=== PATIENT | male | born 1945 | race Caucasian/White ===

== ENCOUNTER 2016-11-19 11:11 | Day surgery (SDC) | payer MEDICARE ==
[~2016-11-19 11:11] MED LIST: CARV25TA PO; HYDR12.56 PO; LISI40TA PO; LOVA20TA PO; MULT400T PO; PROPOFOL 200 MG/20 ML AMP IV ONE; WARF-22 PO; WARF-23 PO
[2016-11-19] MEDS ORDERED: SOTA80TA PO (12:26)
--- NOTE | 2016-11-19 14:27 | PD.CARD ---
Cardiology Procedure Note Procedure Name: DC cardioversion Procedure Date: Nov 19, 2016 Procedure Note: Procedure: DC cardioversion Indication: Atrial fibrillation After patient was sedated by anesthesia, 200 J biphasic shock was delivered converting the patient to SR w V pacing. Dx: Successful cardioversion of atrial fibrillation Plan: Continue anticoagulation. F/u w me in the near future. Ronda Church MD Nov 19, 2016 14:27
--- NOTE | 2016-11-20 14:55 | EKG ---
Date Performed: 11/19/2016 Time Performed: 14:37:32 PTAGE: 70 years EKG: Normal Sinus rhythm Demand pacing IVCD Compared to previous tracing patient appears to be in sinus rhythm Abnormal ECG PREVIOUS TRACING : 11/19/2016 12.17 DOCTOR: Laney Aguiar Interpretating Date/Time 11/20/2016 14:54:10
--- NOTE | 2016-11-21 17:31 | EKG ---
Date Performed: 11/19/2016 Time Performed: 12:17:52 PTAGE: 70 years EKG: Atrial fibrillation with frequent ventricular ectopic beat, possibly pacer beat Incomplete LBBB Possible left ventricular hypertrophy Extensive ST-T changes are probably due to ventricular hyp ertrophy Low QRS voltages in limb leads Clinical correlation is recommended. Compared to prior tracin g, ectopic beats are more frequent. Abnormal ECG PREVIOUS TRACING : 05/28/2016 14.02 DOCTOR: Xiang Echeverria Interpretating Date/Time 11/21/2016 17:30:23
== END 2016-11-19 15:15 | disposition home or self-care (01) ==
LOC: HDIC 11:11 → HROP 11:11
PROVIDERS: ATTEND Internal Medicine Interventional Cardiology
DX: I48.0 Paroxysmal atrial fibrillation (principal); Z79.01 Long term (current) use of anticoagulants
CPT/HCPCS: 92960; 93005

== ENCOUNTER 2017-10-22 12:03 | Day surgery (SDC) | payer MEDICARE ==
[~2017-10-22 12:03] MED LIST changes: -MULT400T PO; -PROPOFOL 200 MG/20 ML AMP IV ONE; +SOTA80TA PO; -WARF-23 PO
[2017-10-22] MEDS ORDERED: SODIUM CHLORID 0.9% 500 ML IV PRN (13:00)
[2017-10-22] MEDS ORDERED: METOPROLOL TARTRATE 25 MG TAB PO PRN (13:00)
[2017-10-22] MEDS ORDERED: POVIDONE IODINE 5% (ANTISEPSIS KIT) 4 APPLICATIONS EACH NARE PRN (13:00)
[2017-10-22] MEDS ORDERED: CHLORHEXIDINE GLUCONATE 2 % 1 PACK (2 CLOTHS) TOPICAL PRN (13:00)
[2017-10-22] MEDS ORDERED: LACTATED RINGER'S 1000 ML IV PRN (13:00)
[2017-10-22] MEDS ORDERED: PROPOFOL 200 MG/20 ML AMP ONE (14:13)
--- NOTE | 2017-10-22 15:11 | MR ---
cc: Ronda Church MD DATE: 10/22/2017 INDICATION: Atrial fibrillation, cardiomyopathy, history of a Medtronic implantable defibrillator placement. PROCEDURES PERFORMED: 1. Direct current cardioversion. 2. Interrogation of Medtronic dual chamber defibrillator. COMPLICATIONS: None. PROCEDURE: After the patient was sedated by anesthesia, 200-joule biphasic shock was delivered and converted the patient to sinus rhythm with ventricular pacing. The device was then interrogated, and the interrogation showed normal defibrillator function. The patient was discharged home in stable condition. DIAGNOSES: 1. Successful cardioversion of atrial fibrillation. 2. Normal function of Medtronic dual chamber defibrillator. DISPOSITION: The patient will continue his current program including anticoagulation. I will see him back for followup in our office after discharge. Ronda Church MD OQ/LK , 02:24 PM , 03:10 PM MTDShane
--- NOTE | 2017-10-23 14:09 | EKG ---
Date Performed: 10/22/2017 Time Performed: 15:18:50 PTAGE: 71 years EKG: Dual chamber pacing Abnormal ECG Compared to PREVIOUS TRACING , the patient is no longer in atrial fibrillation. PREVIOUS TRACIN 12.37 DOCTOR: Julien Spaulding Interpretating Date/Time 10/23/2017 14:07:57
--- NOTE | 2017-10-23 14:09 | EKG ---
Date Performed: 10/22/2017 Time Performed: 12:37:58 PTAGE: 71 years EKG: Atrial fibrillation with a controlled ventricular rate and ventricular demand pacing Low li mb lead voltage Nonspecific ST-T wave changes Abnormal ECG Since PREVIOUS TRACING , no significant change noted PREVIOUS TRACIN11/19/2016 14.37 DOCTOR: Julien Spaulding Interpretating Date/Time 10/23/2017 14:07:11
== END 2017-10-22 15:58 | disposition home or self-care (01) ==
LOC: HSDC 12:03 → HDIC 12:03 → HSDC 15:58
PROVIDERS: ATTEND Internal Medicine Interventional Cardiology
DX: I48.91 Unspecified atrial fibrillation (principal); I42.9 Cardiomyopathy, unspecified; Z95.810 Presence of automatic (implantable) cardiac defibrillator
CPT/HCPCS: 92960; 93005

== ENCOUNTER 2018-01-12 10:29 | Day surgery (SDC) | payer MEDICARE ==
[~2018-01-12] VITALS: Ht 175.3 cm; Wt 92.7 kg
[2018-01-12 11:29] VITALS: BP 122/72; PULSE 64; RESP 18; TEMP 97.9; O2SAT 94
[2018-01-12] MEDS ORDERED: CHLORHEXIDINE GLUCONATE 2 % 1 PACK (2 CLOTHS) TOPICAL PRN (11:30)
[2018-01-12] MEDS ORDERED: LACTATED RINGER'S 1000 ML IV PRN (11:30)
[2018-01-12] MEDS ORDERED: SODIUM CHLORID 0.9% 500 ML IV PRN (11:30)
[2018-01-12] MEDS ORDERED: POVIDONE IODINE 5% (ANTISEPSIS KIT) 4 APPLICATIONS EACH NARE PRN (11:30)
[2018-01-12] MEDS ORDERED: METOPROLOL TARTRATE 25 MG TAB PO PRN (11:30)
[2018-01-12] MEDS ORDERED: ceFAZolin 2 GM PREMIX 50 ML IV SCH (11:45)
[2018-01-12] MEDS ORDERED: CHLORHEXIDINE GLUCONATE 2 % 1 PACK (2 CLOTHS) TOPICAL SCH (11:45)
[2018-01-12] MEDS ORDERED: NS 1000 ML IV SCH (11:45)
[2018-01-12] MEDS ORDERED: VANCOMYCIN 1000 MG/NS 250 ML IV SCH ×2 (11:45)
[2018-01-12] MEDS ORDERED: POVIDONE IODINE 5% (ANTISEPSIS KIT) 4 APPLICATIONS EACH NARE SCH (11:45)
[2018-01-12] MEDS ORDERED: MUPIROCIN 2% OINT 1 APPLIC/GM SYR NASAL SCH (11:45)
[2018-01-12] MEDS ORDERED: LOVA40TA PO (11:47)
[2018-01-12] MEDS ORDERED: SACU1TAB4 PO (11:47)
[2018-01-12] MEDS ORDERED: SPIR25TA PO (11:47)
[2018-01-12] MEDS ORDERED: AMIO200T PO (11:47)
[2018-01-12] MEDS ORDERED: VITACAP7 PO (11:47)
[2018-01-12] MEDS ORDERED: HYDR25TA5 PO (11:47)
[2018-01-12] MEDS ORDERED: GLUC1CAP16 PO (11:47)
[2018-01-12] MEDS ORDERED: WARF-23 PO (11:47)
[2018-01-12] MEDS ORDERED: MULT1TAB46 PO (11:47)
[2018-01-12] MEDS ORDERED: VITA250T3 PO (11:47)
[2018-01-12 11:55] LABS: AUTOMATED NEUTROPHIL # 6.4 TH/MM3 (1.8-7.7); BASOPHIL # 0.1 TH/MM3 (0-0.2); BASOPHIL % 0.6 % (0.0-2.0); EOSINOPHIL # 0.1 TH/MM3 (0-0.4); EOSINOPHIL % 1.3 % (0.0-4.0); HEMATOCRIT 36.9 % (39.0-51.0); HEMOGLOBIN 12.7 GM/DL (13.0-17.0); LYMPH % 14.6 % (9.0-44.0); LYMPHOCYTE # 1.2 TH/MM3 (1.0-4.8); MEAN CELL VOLUME 89.8 FL (80.0-100.0); MEAN CORPUSCULAR HEMOGLOBIN 30.9 PG (27.0-34.0); MEAN CORPUSCULAR HGB CONC 34.4 % (32.0-36.0); MEAN PLATELET VOLUME 7.3 FL (7.0-11.0); MONO % 7.6 % (0.0-8.0); MONOCYTE # 0.6 TH/MM3 (0-0.9); NEUT % 75.9 % (16.0-70.0); PLATELET COUNT 245 TH/MM3 (150-450); RED BLOOD COUNT 4.11 MIL/MM3 (4.50-5.90); RED CELL DISTRIBUTION WIDTH 13.3 % (11.6-17.2); WHITE BLOOD COUNT 8.4 TH/MM3 (4.0-11.0)
[2018-01-12] MEDS ORDERED: ePHEDrine/NS 25 MG/5 ML SYRINGE IV ONE (12:00)
[2018-01-12] MEDS ORDERED: PROPOFOL 200 MG/20 ML AMP IV ONE (12:00)
[2018-01-12] MEDS ORDERED: LIDOCAINE HCL 1% PF 5 ML SYRINGE OTHER ONE (12:00)
[2018-01-12] MEDS ORDERED: PHENYLEPH/NS 1000 MCG/10 ML SYR IV ONE (12:00)
[2018-01-12 12:07] LABS: INTERNATIONAL NORMALIZED RATIO 1.3 RATIO
[2018-01-12 12:09] LABS: CALCIUM 8.9 MG/DL (8.5-10.1); CREATININE 1.69 MG/DL (0.60-1.30)
[2018-01-12] MEDS ORDERED: LIDOCAINE HCL 2% 20 ML VIAL ONE (14:33)
[2018-01-12] MEDS ORDERED: GENTAMICIN SULFATE 80 MG/2 ML VIAL ONE (14:33)
--- NOTE | 2018-01-12 16:20 | CATHPROC ---
[facility] HIS Report Study Information Study Number Admission Scheduled Start Study Start [id number] Jan 12 2018 10:29AM 01/12/2018 Jan 12 2018 2:02PM [facility] Cardiac Pacer/ICD Admit Source Facility Department Other [facility] - Health Consultant Physician and Clinical Staff Initial Ronda Fuentes Fleet Technician Cynthia Chaves,STAFF DEVELOPER Other Anesthesia, SENIOR SYSTEMS DEVELOPER Recorder Zuleyka Swartz BSN Recorder Claudia Anguiano,JULIUS Scrub Carter Mcdonough RT(R) Equipment Time Textile Chemist Description Size Mfg Part Number Used/Scraped 14:38 [employer] DRAPE, [place] X-RAY 12X17 12X17 D-100 *[id number] Used INTRODUCER SET, 14:38 [employer] FR 5 [id number] *[id number] Used MICROPUNCTURE STIFF INTRODUCER SET, 14:38 [employer] FR 5 [id number] *[id number] Used MICROPUNCTURE STIFF [id number] 14:38 [email or web address] BLANKET,WARM AIR CCL * Used *[id number] 14:38 [email or web address] DRAPE, IOBAN 2 6661EZ 26cm x 20cm Used *[id number] TP-1103 14:38 [email or web address] SUTURE, STRIP PLUS 1/2" * Used *[id number] 14:38 MEDLINE PACER ADHESIVE, MASTISOL 2/3CC 2/3CC 0523-48 Used 14:38 MEDLINE PACER SORENSEN, LIMB * 2530 *[id number] Used [id number] 14:38 MEDLINE PACER PACK, PACER CUSTOM * Used *[id number] 14:38 MEDLINE PACER PEN, SKIN DUAL W/ RULER * Used *[id number] PROBE COVER, STERILE [id number] 14:38 [employer] MEDICAL * Used ULTRASOUND W/ GEL *[id number] 14:44 Needle Sponge Count 1 111 Used 14:44 Needle Sponge Count 2 2 Used 14:44 Needle Sponge Count 25 1 Used 15:30 Needle Sponge Count 30 1 Used 15:24 Needle Sponge Count 35 Used [id number] SUTURE, 0 ETHIBOND [CT1] (CX21D), 8pk SUTURE, 2-0 VICRYL [CT1] ([id number]) SUTURE, 2-0 VICRYL [CT1] (HLG644H) SUTURE, 4-0 VICRYL [PS2] (YCH745H) ENVELOPE, TYRX ANTIBACTERIAL 15:12 [employer]. [id number] Used [facility] PAD, ELECTROSURGICAL 14:38 * [id number] *[id number] Used SURGICAL GROUNDING ORANGE DEFIBRILLATOR, EVERA MRI XT 15:04 VITATRON MEDTRONIC DDE-DDDR [id number] Used [id number] 14:39 VITATRON MEDTRONIC PLASMABLADE, PEAD 3.0S * Used *[id number] 14:38 [employer]. / * Used *[id number] Equipment Model, Serial, Lot Number and Expiration Data Description Model Number Serial Number Lot Number Expiration Date DEFIBRILLATOR, EVERA MRI XT [id number] 05-24-2019 ENVELOPE, TYRX ANTIBACTERIAL [id number] 03-27-2018 LARGE Labs Hgb (g/dl) Hct (%) RBC (MIL/MM3) WBC (l/cumm) Platelets (thousands) 11.60-17.00 35.00-51.00 4.00-5.90 4.00-11.00 150.00-450.00 12.7 36.9 4.1 8.4 245 Glucose (mg/dl) BUN (mg/dl) Creatinine (mg/dl) BUN:Creatinine (1:x) 74.00-106.00 7.00-18.00 0.50-1.30 10.00-20.00 91 37 1.6 23.1 Na (meq/l) K (meq/l) 136.00-145.00 3.50-5.10 141 4.5 INR (PTT:PT) 0.90-1.10 1.3 CPK-MB (ng/ML) 0.50-3.60 Not Drawn Medication Medication Total Dose (Bolus/Oral) Medication Total Dosage/Unit 2% XYLOCAINE 20 mL Medications (Bolus/Oral) Medication Time Given Dosage/Unit Administered By Reason 2% XYLOCAINE 01/12/2018 3:00:45 PM 20 mL Ronda Church 20 mL 2% XYLOCAINE given in lab by Ronda Church to left chest via Subcutaneous. Ordered by Ronda Church. Medication (Drip) Medication Time Given Dosage/Unit Concentration/Unit Diluent (ml) Solution ANCEF 01/12/2018 2:17:27 PM 2 g 2 g ANCEF given in lab by Anesthesia, SENIOR SYSTEMS DEVELOPER via Peripheral IV. Ordered by Ronda Church. IV Solutions 01/12/2018 2:26:02 PM 50 mL (IV) NaCl .9 IV Solutions given in lab by Anesthesia, SENIOR SYSTEMS DEVELOPER via Peripheral IV. Pump/Drip Flow using NaCl .9. Ordere d by Ronda Church. at [facility] IV Solutions 01/12/2018 2:26:47 PM 50 mL (IV) NaCl .9 IV Solutions given in lab by Anesthesia, SENIOR SYSTEMS DEVELOPER via Peripheral IV. Pump/Drip Flow using NaCl .9. Ordere d by Ronda Church. at [facility] VANCOMYCIN DRIP 01/12/2018 2:20:55 PM 1 g 1 g VANCOMYCIN DRIP given in lab by Anesthesia, SENIOR SYSTEMS DEVELOPER via Peripheral IV. Ordered by Ronda Church. Initial Case Assessment Cardiovascular HR Rhythm NIBP 64 sr 142/64 Edema Present Skin color Skin None Normal Warm Dry Circulatory - Lower Extremities Color Lower Right Color Lower Left Normal Normal Respiration - General Respiration Rate SpO2 (%) (B/min) 18 94 Chronological Log Time Study Chronological Log 14:17:27 2 g ANCEF given in lab by Anesthesia, SENIOR SYSTEMS DEVELOPER via Peripheral IV. Ordered by Ronda Church. 14:19:14 Patient arrived via Bed. 14:19:18 Patient Name, D.O.B, / Armband Verified By R.N. 14:19:19 Consent signed by the physician and the patient and verified by the Health Consultant staff. 14:19:19 Pre-op and post- op instructions given; patient acknowledges understanding of instructions. 14:19:21 Anesthesia at bedside. Assumes care of patient. 14:20:55 1 g VANCOMYCIN DRIP given in lab by Anesthesia, SENIOR SYSTEMS DEVELOPER via Peripheral IV. Ordered by Ronda Church. 14:22:22 2% CHLORHEXIDINE GLUCONATE WASH AND NASAL SWIPE DONE PRIOR TO PROCEDURE. 14:23:38 Patient Warmer Placed on the Table. 14:23:48 Rayo Prominences Protected 14:25:38 A # 20 IV was noted in the Forearm (left). Grade = 0 14:25:49 A # 20 IV was noted in the Antecubital (right). Grade = 0 IV Solutions given in lab by Anesthesia, SENIOR SYSTEMS DEVELOPER via Peripheral IV. Pump/Drip Flow using NaCl .9. Ordered by Ranjit, 14:26:02 Ronda. at [facility] 14:26:17 Table restraints applied according to hospital policy 14:26:44 Disposable Defibrillator Pads Placed On Patient. IV Solutions given in lab by Anesthesia, SENIOR SYSTEMS DEVELOPER via Peripheral IV. Pump/Drip Flow using NaCl .9. Ordered by Ranjit, 14:26:47 Ronda. at [facility] 14:28:00 Dr. Tong present for LMA insertion 14:30:50 LMA placed in airway 14:33:33 Patient has been NPO for More than 6Hrs. 14:33:57 History and physical is being dictated. First Sponge And Instrument Count Done by Carter Mcdonough, RT(R). 14:36:24 Hypo's: 2, Sponges: 30, Bovie/scratch: 1 Sutures: 3, Blades: 2, Instruments: 26, Syveck Patches: ~SYVECK PATCH~ verified by BL 14:47:50 MD arrived. Assessment: Initial Case, HR=64 BPM, Rhythm=sr, IRPF=588/64 mmhg, Edema=None, Color=Normal, Ski n = Warm, Dry 14:56:47 Lower Right Extremities: Color=Normal Lower Left Extremities: Color=Normal Respiration: Resp=18 B/min, SpO2=94 % Time Out. Correct patient, procedure, procedure equipment, site and side verified with physicia n present. Time 15:00:25 concurred by MD, individual staff and SENIOR SYSTEMS DEVELOPER. Time Out #2 - Consents verified, patient in correct position, all results are labled and displa yed, safety precautions 15:00:26 taken, antibiotics administered. Time out concurred by MD, individual staff and SENIOR SYSTEMS DEVELOPER in procedu re 15:00:35 Case Start 15:00:45 20 mL 2% XYLOCAINE given in lab by Ronda Church to left chest via Subcutaneous. Ordered by Ronda Church. 15:03:06 Surgical Incision Made. 15:09:57 A pocket was created at the L Upper Chest. 15:10:06 A device was explanted. 15:10:56 Antibiotic envelope put into the surgical pocket. 15:17:45 One antibiotic sponges put into the surgical pocket. 15:22:22 Antibiotic sponge removed from the surgical pocket. 15:23:39 Pocket flushed with antibiotic solution 15:25:45 A DEFIBRILLATOR, EVERA MRI XT DR DDE-DDDR was connected and placed in the pocket. Second Sponge And Instrument Count Done by Carter Mcdonough RT(R). 15:28:45 Hypo's: 2, Sponges: 30, Bovie/scratch: 1 Sutures: 3, Blades: 2, Instruments: 26, Syveck Patches: ~SYVECK PATCH~ verified by BL 15:29:35 The pocket is being closed. 15:57:01 The pocket was closed. Final Sponge And Instrument Count Done by Carter Mcdonough RT(R). 15:57:58 Hypo's: 2, Sponges: 30, Bovie/scratch: 1 Sutures: 3, Blades: 2, Instruments: ~INSTRU~, Syveck Patches: 0 verified by BL 15:58:38 The DFT was Success at 25 Joules, 46 Ohms lead impedance and 5.3 sec charge time. 15:59:12 Case End (Physician broke scrub) 15:59:54 Docu called. Spoke to Chano 16:01:08 No case complications noted. 16:01:10 Cine recording checked. 16:01:13 Bedside Report will be given. 16:01:15 Implantable Device card placed in patient's chart. 16:01:28 Implant Procedure was performed. 16:01:31 A ICD Removal . (Dual) 16:02:45 A ICD Implant . (Dual) 16:03:06 Steri-strips and a sterile dressing applied to site. 16:14:22 Patient moved to stretcher 16:15:17 Defibrillator and ground pads removed. Skin intact. End Study - Contrast Media Used In Study Contrast Total Opened (mL) Total Used (mL) Total Wasted (mL) Omnipaque 0 0 0 End Study - Maximum Contrast Load Max Contrast Load (mL) 289.6 End Study - Radiation Exposure Fluoro Time (minutes) 0.1 End Study - Patient Disposition Complications Transferred To No Health Consultant Holding
[2018-01-12] MEDS ORDERED: MIDAZOLAM HCL 2 MG/2 ML VIAL ONE (16:36)
--- NOTE | 2018-01-12 22:51 | EKG ---
Date Performed: 01/12/2018 Time Performed: 11:09:48 PTAGE: 72 years EKG: Sinus rhythm . Leftward axis IV conduction defect Inferior infarct - age undetermined Lateral T wave changes are n onspecific Low QRS voltages in limb leads Abnormal ECG PREVIOUS TRACING : 10/22/2017 15.18 DOCTOR: Rylan Carter Interpretating Date/Time 01/12/2018 22:50:08
--- NOTE | 2018-01-13 09:42 | MR ---
cc: Ronda Church MD DATE: 01/12/2018 INDICATION: End of life of Medtronic dual chamber implantable defibrillator, history of congestive heart failure, class 2. The patient has been on guideline directed medical therapy for over 3 months, history of nonischemic cardiomyopathy, ejection fraction 25 percent on echocardiogram from 08/13/2017. History of ventricular fibrillation. The device is placed for secondary prevention. EKG rhythm is sinus rhythm. The patient has a history of paroxysmal atrial fibrillation. Atrial lead was placed for SVT discrimination. Original device was placed 01/01/2012. PROCEDURES PERFORMED: 1. Explantation of end of life Medtronic dual chamber defibrillator. 2. Placement of a new Medtronic dual chamber defibrillator. 3. Testing of Medtronic defibrillator system. ACCESS SITE: Left subclavicular area. EQUIPMENT USED: Medtronic Evera, MRI compatible, dual chamber defibrillator, serial number [id number]. Atrial lead: Medtronic model 4076, atrial lead serial number [id number]. Right ventricular lead: Medtronic model 6947. Screw-in ventricular lead serial number [id number]. Both leads placed 01/01/2012. Tyrx antibiotic pouch. LEAD TESTING: Right atrial lead: P-wave 2.7 millivolts, lead impedance 456 ohms, pacing threshold 0.75 volts at 0.4 milliseconds. Right ventricular lead: R-wave 5.5 millivolts, lead impedance 361 ohms, pacing threshold 1.0 volts at 0.4 milliseconds. Ventricular fibrillation was induced on 1 occasion and the device failed to convert it with 20 joules, but 25 joules at 46 ohms converted the patient to sinus rhythm. PARAMETERS: Prepare settings. DIAGNOSIS: 1. Successful replacement of end of life Medtronic dual chamber defibrillator using Medtronic dual chamber MRI compatible device. 2. Successful testing of Medtronic defibrillator system. 3. Defibrillation threshold 25 joules. DISPOSITION: The patient will continue his current medical program including therapy for CHF. He was given instructions concerning his wound care. He will be seen back for a wound check and chronic device reprogramming in our office within 2 weeks. MD RENNY García/DARCIE , 04:08 PM , 05:45 PM HARSH
== END 2018-01-12 19:00 | disposition home or self-care (01) ==
LOC: HDOC 10:29 → HDIC 10:30 → HDOC 19:00
PROVIDERS: ATTEND Internal Medicine Interventional Cardiology
DX: Z45.02 Encounter for adjustment and management of automatic implantable cardiac defibrillator (principal); I11.0 Hypertensive heart disease with heart failure; I50.20 Unspecified systolic (congestive) heart failure; I42.9 Cardiomyopathy, unspecified; I48.0 Paroxysmal atrial fibrillation
CPT/HCPCS: 00530; 33263; 80048; 85025; 85610; 85730; 93005; 93641; C1721; J0690; J1580; J2250; J2370; J3010; J3370; J7050